=== PATIENT | female | born 1935 | race Caucasian/White ===

== ENCOUNTER → 2017-02-25 | Outpatient (CLI) | payer MEDICARE, MEDICAID ==
[2017-02-25 10:06] LABS: Blood Urea Nitrogen 21 mg/dL (7-17); Non-African American GFR(MDRD) 50 (>60 ml/min/1.73 sqM)
== END | disposition home or self-care (01) ==
LOC: LABWHC1 09:21
PROVIDERS: ATTEND Psychiatry & Neurology Neurology
DX: Z01.812 Encounter for preprocedural laboratory examination (principal)
CPT/HCPCS: 36415; 82565; 84520

== ENCOUNTER → 2017-03-01 | Outpatient (CLI) | payer MEDICARE, MEDICAID ==
--- NOTE | 2017-03-01 15:46 | MR ---
EXAMINATION TYPE: MR brain and iac wo/w con DATE OF EXAM: 03/01/2017 COMPARISON: NONE HISTORY: acoustic neuroma dizziness imbalance. Vertigo. Previous history of cataract surgery. Previous IAC MRI 2012. TECHNIQUE: Multiplanar, multisequence images of the brain and brainstem is performed without and with IV contras t, utilizing 20 mL intravenous MultiHance . Thin 3-D FIESTA sequences were obtained through the inter nal auditory canals in multiplanar fashion. Findings: There is no restricted diffusion to suggest an acute infarct. There is no worrisome extra-a xial fluid collection. There are no abnormal intra or extra-axial fluid collections. The ventricular system and cisternal spaces are stable in size and appearance. The brain volume is age appropriate. T here are scattered periventricular T2 and FLAIR signal hyperintensities most consistent with chronic white matter ischemic changes. There is mild cortical atrophy. Midline structures demonstrate normal morphology. The craniocervical junction appears within normal limits. The globes are intact. There is a 6.4 x 4.5 cm homogeneously enhancing intracanalicular left internal auditory canal lesion consistent with an acoustic neuroma. This as slightly increased since the previous study when it ney ured 5 mm. The right internal auditory canal is unremarkable. No other focus of abnormal enhancement is identifi ed. There is some opacification of the ethmoid sinuses as well as frontal sinuses. There is mild nasal se ptal deviation to the right. 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
== END | disposition home or self-care (01) ==
LOC: RADMRIMAIN 13:20
PROVIDERS: ATTEND Psychiatry & Neurology Neurology
DX: D33.3 Benign neoplasm of cranial nerves (principal)
CPT/HCPCS: 70553; A9577

== ENCOUNTER → 2017-03-20 | Outpatient (CLI) | payer MEDICARE, MEDICAID ==
--- NOTE | 2017-03-22 05:18 | ENG ---
VNG REPORT DATE OF SERVICE: 03/20/2017 VNG INDICATIONS: An 81-year-old female with persistent vertigo and dizziness, which began several years ago of sudden onset and is getting worse. Spells come in attacks and interval for spells varies. They last a few minutes at a time. These can be precipitated by rolling over in bed, left to right, going from a lying to a seated position, looking ( ) back position, bending over or head down position. Patient reports bilateral hearing loss and bilateral tinnitus. No fullness in the ears. VNG FINDINGS: Saccades shows intact peak velocity and accuracies and borderline latencies. Gaze with fixation shows no nystagmus in any of the directions of gaze including centrally with vision denied. Tracking shows no significant breakups. Optokinetic nystagmus shows no significant asymmetry. Static position testing in 4 positions with eyes opened and then with vision denied was negative for nystagmus. Right side and left side could not be done due to mobility issues. 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 Caloric testing shows bilateral caloric weakness. IMPRESSION: VNG findings show bilateral vestibular weakness. Review of medications do not disclose any suppressing medications. Otherwise, this is an unremarkable VNG study. Clinical correlation necessary. BRADLYD
== END ==
LOC: NEUROMAIN 08:44
PROVIDERS: ATTEND Psychiatry & Neurology Neurology
DX: R42 Dizziness and giddiness (principal); R53.1 Weakness
CPT/HCPCS: 92537; 92540

== ENCOUNTER 2017-05-20 01:38 | Emergency (ER) | payer MEDICARE, MEDICAID ==
[2017-05-20] MEDS ORDERED: HYDROmorphone 1 MG/ML 1 ML SYRINGE IM STA (02:10)
--- NOTE | 2017-05-20 02:14 | ED ---
General Adult HPI - General Chief complaint: Extremity Injury, Upper Stated complaint: shoulder pain Time Seen by Provider: 05/20/17 02:02 Source: patient, EMS, RN notes reviewed Mode of arrival: EMS Limitations: no limitations - History of Present Illness Initial comments: Patient is a pleasant 81-year-old female presenting to the emergency Department with left shoulder pain. Onset was an hour ago. Patient fell letting the dogs outside. Patient states she slipped. No head injury or loss of consciousness. No neck or back pain. Patient only complains of discomfort of her left shoulder. Patient had difficulty getting up secondary to chronic knee problems. No acute injury. Left shoulder discomfort increases greatly with movement and patient requests Dilaudid. - Related Data Home Medications Medication Instructions Recorded Confirmed Aspirin 81 mg PO HS 04/11/14 09/11/15 Atorvastatin [Lipitor] 20 mg PO HS 04/11/14 09/11/15 Gabapentin [Neurontin] 300 mg PO TID 04/11/14 09/11/15 Lisinopril [Zestril] 20 mg PO BID 04/11/14 09/11/15 Multivitamins, Thera [Multivitamin] 1 each PO DAILY@1200 09/06/14 09/11/15 Oxybutynin [Oxytrol] 1 each TD DAILY 09/06/14 09/11/15 hydrALAZINE HCL [Apresoline] 50 mg PO BID 09/06/14 09/11/15 ALPRAZolam [Xanax] 0.25 mg PO HS 09/11/15 09/11/15 Previous Rx's Medication Instructions Recorded cloNIDine HCL [Catapres] 0.1 mg PO TID PRN #90 tab 09/07/14 Hydrocodone/Acetaminophen [[place] 2 each PO Q6HR PRN #25 tab 09/11/15 5-325] Acetaminophen-Codeine 300-30mg 1 each PO Q4H PRN #12 tablet 05/20/17 [Tylenol #3] Allergies Allergy/AdvReac Type Severity Reaction Status Date / Time amoxicillin [Amoxicillin] Allergy Rash/Hives Verified 09/11/15 13:44 dexamethasone [From Decadron] Allergy Rapid Verified 09/11/15 13:44 Heart Rate dexamethasone sod phosphate Allergy Rapid Verified 09/11/15 13:44 [From Decadron] Heart Rate digoxin Allergy Nausea Verified 09/11/15 13:44 Penicillins Allergy Rash/Hives Verified 09/11/15 13:44 tetracycline [Tetracycline] Allergy Rash/Hives Verified 09/11/15 13:44 tuberculin, purified protein Allergy Rash/Hives Verified 09/11/15 13:44 deriva [tuberculin,purif.prot.deriv.] Review of Systems ROS Statement: Those systems with pertinent positive or pertinent negative responses have been documented in the HPI. ROS Other: All systems not noted in ROS Statement are negative. Constitutional: Denies: fever Eyes: Denies: eye pain ENT: Denies: ear pain Respiratory: Denies: cough Cardiovascular: Denies: chest pain Endocrine: Denies: fatigue Gastrointestinal: Denies: abdominal pain Genitourinary: Denies: dysuria Musculoskeletal: Denies: back pain Skin: Denies: rash Neurological: Denies: weakness Past Medical History Past Medical History: Coronary Artery Disease (CAD), GERD/Reflux, Hyperlipidemia , Hypertension Additional Past Medical History / Comment(s): vertigo,neuralgia,hiatal hernia History of Any Multi-Drug Resistant Organisms: None Reported Past Surgical History: Adenoidectomy, Appendectomy, Cholecystectomy, Hysterectomy, Orthopedic Surgery, Tonsillectomy Additional Past Surgical History / Comment(s): cataract removal,cardiac cath no stents, bilateral total knee replacements Past Anesthesia/Blood Transfusion Reactions: Blood Transfusion Reaction Additional Past Anesthesia/Blood Transfusion Reaction / Comment(s): Chills, fever x 2 Past Psychological History: Anxiety Smoking Status: Never smoker Past Alcohol Use History: Occasional Past Drug Use History: None Reported - Past Family History Father Family Medical History: Cancer Additional Family Medical History / Comment(s): Colon General Exam Limitations: no limitations General appearance: alert, in no apparent distress Head exam: Present: atraumatic Eye exam: Present: normal appearance, PERRL ENT exam: Present: normal oropharynx Neck exam: Present: normal inspection. Absent: tenderness Respiratory exam: Present: normal lung sounds bilaterally Cardiovascular Exam: Present: regular rate, normal rhythm Expanded Peripheral pulses: 2+: Radial (L) GI/Abdominal exam: Present: soft. Absent: tenderness Extremities exam: Present: other (Distally the extremity is neurovascular intact. No lower extremity tenderness.) Left Shoulder Exam: Present: tenderness. Absent: full ROM (Range of motion decreased secondary to discomfort.) Upper Arm exam: Present: tenderness (Mild tenderness upper humerus) Elbow exam: Present: normal inspection. Absent: tenderness Forearm Wrist exam: Present: normal inspection. Absent: tenderness Hand Wrist exam: Present: normal inspection. Absent: tenderness Vascular: Present: normal capillary refill Back exam: Present: normal inspection. Absent: tenderness Neurological exam: Present: alert, CN II-XII intact. Absent: motor sensory deficit Psychiatric exam: Present: normal affect, normal mood Skin exam: Present: normal color Course Vital Signs 05/20/17 05/20/17 01:45 02:35 Temperature 96.8 F L Pulse Rate 64 57 L Respiratory 20 20 Rate Blood Pressure 208/99 206/103 O2 Sat by Pulse 94 L 93 L Oximetry Medical Decision Making - Medical Decision Making Patient reexamined and resting comfortably in bed. Patient updated on results and need for follow-up. Patient is comfortable with discharge. - Radiology Data Radiology results: image reviewed (Chest x-ray and left humerus x-ray revealed no acute process.) Disposition Clinical Impression: Shoulder injury Disposition: HOME SELF-CARE Condition: Stable Instructions: Shoulder Sprain (ED) Additional Instructions: Please follow-up to primary care physician and orthopedics tomorrow. Return for increased pain, weakness, worsening or changing symptoms or other concerns. Prescriptions: Acetaminophen-Codeine 300-30mg [Tylenol #3] 1 each PO Q4H PRN #12 tablet PRN Reason: Pain Referrals: Junior Woo MD [Primary Care Provider] - 1-2 days Pérez Killian MD [Medical Doctor] - 1-2 days Time of Disposition: 03:54
[2017-05-20 02:37] VITALS: PULSE 57
--- NOTE | 2017-05-20 02:41 | XR ---
EXAM: XR Left Humerus, 2 or More Views CLINICAL HISTORY: Reason: Pain TECHNIQUE: Frontal and lateral views of the left humerus. COMPARISON: No relevant prior studies available. FINDINGS: Bones/joints: Unremarkable. No acute fracture. No dislocation. Soft tissues: Unremarkable. IMPRESSION: Normal left humerus x-rays.
--- NOTE | 2017-05-20 02:42 | XR ---
EXAM: XR Chest, 1 View CLINICAL HISTORY: Reason: Pain TECHNIQUE: Frontal view of the chest. COMPARISON: 09/06/14 FINDINGS: Lungs: No lobar consolidation or pulmonary edema. Low lung volumes accentuate pulmonary markings. Pleural space: Unremarkable. No pneumothorax. Heart: Mild cardiomegaly. Mediastinum: Unremarkable. Bones/joints: Unremarkable. IMPRESSION: No acute findings. Prominence of the central pulmonary vasculature may be due to technique.
[2017-05-20 04:34] VITALS: BP 205/88; RESP 18; TEMP 97.6
== END 2017-05-20 04:35 | disposition home or self-care (01) ==
LOC: EC 01:38
DX: S49.92XA Unspecified injury of left shoulder and upper arm, initial encounter (principal); I25.10 Atherosclerotic heart disease of native coronary artery without angina pectoris; E78.5 Hyperlipidemia, unspecified; I10 Essential (primary) hypertension; F41.9 Anxiety disorder, unspecified; Z98.890 Other specified postprocedural states; Z96.653 Presence of artificial knee joint, bilateral; Z79.82 Long term (current) use of aspirin; Z79.891 Long term (current) use of opiate analgesic; Z79.899 Other long term (current) drug therapy; Z88.0 Allergy status to penicillin; Z88.1 Allergy status to other antibiotic agents; Z88.8 Allergy status to other drugs, medicaments and biological substances; W01.0XXA Fall on same level from slipping, tripping and stumbling without subsequent striking against object, initial encounter
CPT/HCPCS: 71010; 73060; 99283; 96372; J1170